=== PATIENT | male | born 1970 | race Caucasian/White ===

== ENCOUNTER 2022-07-06 12:51 | Emergency (ER) | payer BC ==
[~2022-07-06] VITALS: Ht 175.3 cm; Wt 80.0 kg
[2022-07-06 12:57] VITALS: BP 159/84
[2022-07-06 14:41] LABS: BASOPHILS % 0.1 % (0.0-2.0); EOSINOPHILS % 0.1 % (0.0-5.0); HEMATOCRIT. 43.5 % (42.0-52.0); HEMOGLOBIN. 14.8 g/dL (14.0-18.0); LYMPHOCYTES % 7.2 % (20.0-50.0); MEAN CORPUSCULAR HEMOGLOBIN 30.3 pg (28.0-32.0); MEAN CORPUSCULAR VOLUME 88.9 fL (80.0-94.0); MEAN PLATELET VOLUME 8.8 fl (7.4-10.4); NEUTROPHILS % 87.6 % (40.0-76.0); PLATELET 186 x1000/uL (130-400); RED CELL DISTRIBUTION WIDTH 13.3 % (11.6-14.6)
[2022-07-06 14:55] LABS: CHLORIDE 100 mEq/L (98-107)
[2022-07-06 15:09] LABS: ETHANOL BLOOD < 10 mg/dL
[2022-07-06] MEDS ORDERED: AZIT500T8 MT (16:43)
== END 2022-07-06 16:55 | disposition home or self-care (01) ==
LOC: ER 12:51
DX: F16.129 Hallucinogen abuse with intoxication, unspecified (principal); K58.9 Irritable bowel syndrome, unspecified
CPT/HCPCS: 36415; 71045; 80053; 80320; 83880; 84484; 85025; 99284; G0480